=== PATIENT | male | born 1955 | race Caucasian/White ===

== ENCOUNTER 2020-08-24 09:13 | Outpatient (REF) | payer MEDICARE, SELFPAY ==
--- NOTE | 2020-08-24 09:22 | XR_ITS ---
EXAMINATION: XR LUMBOSACRAL SPINE CLINICAL INFORMATION: Back pain COMPARISON: None TECHNIQUE: Three views of the lumbosacral spine. FINDINGS: Bone alignment is normal. No fracture or dislocation is seen. Disc spaces are normal. There is evidence of mild multilevel degenerative spondylosis and lower lumbar spine facet arthritis. There is evidence of atherosclerotic disease. XR/XR lumbar spine 2-3V IMPRESSION: Mild degenerative changes.
== END 2020-08-24 09:14 | disposition home or self-care (01) ==
LOC: HO.XRAY 09:13
PROVIDERS: PCP Internal Medicine; Visit Provider Internal Medicine
DX: M54.9 Dorsalgia, unspecified (principal)
CPT/HCPCS: 72100

== ENCOUNTER 2020-12-14 09:00 | Outpatient (RCR) | payer MEDICARE, SELFPAY ==
[2020-12-01 08:14] VITALS: BP 161/81; PULSE 65
--- NOTE | 2020-12-01 09:43 | MHC.PT.EP ---
[facility] [place] Office [place] Office [place] Office [address] Racheal Solo [address] [phone] F: [phone] F: [phone] F: [phone] F: [phone] Physical Therapy Plan of Care Date of Evaluation: 12/01/20 Date of Surgery: NA Diagnosis: DORSALGIA Assessment: JEREMIAS IS A PLEASANT 65 YO GENTLEMAN WHO PRESENTS WITH LEFT SIDED LOW BACK PAIN OF ABOUT 6 MONTHS' DURATION AND INSIDIOUS ONSET. UPON EXAM HE DEMONSTRATES INCREASED LEFT HIP ABD ROM WITH DECREASED HIP IR AND ER RANGE. STRENGTH OF LEFT LOWER EXTREMITY IS DECREASED COMPARED TO CONTRALATERAL SIDED, RESISTED MOTIONS ARE STRONG AND PAINFUL. DEMONSTRATES RIGHT SI DYSFUNCTION WITH DECREASED MOBILITY AND THESE FINDINGS LEAD TO MUSCULAR LENGTH AND STRENGTH IMBALANCES AND PATTERENED MOVEMENT STYLES CAUSING ALTERED MECHANICS AND INCREASED PAIN. FUNCTIONAL LIMITATIONS INCLUDE DECREASED ABILTIY TO PERFORM LIFTING AND BENDING, DECREASED TOLERANCE TO TRANSFERS AND GAIT, DECREASED PARTICIPATION IN FITNESS AND RECREATIONAL ACTIVITIES AND DISRUPTED SLEEP. Frequency and Duration: The patient will be seen 2 X WEEK FOR 5 WEEKS Short Term Goals: INITIATE HEP AND PROMOTE SELF MANAGEMENT OF SYMPTOMS IN 2 VISITS Snf Goals: IN 5 WEEKS: FULL, PAIN FREE ROM OF LOW BACK AND LEFT LE LIFTING FLOOR TO WAIST UP TO 25# WITH CORRECT BODY MECHANICS AND NO VERBAL CUING FULL LE STRENGTH, EQUAL ELIZABET RETURN TO FITNESS WALKING, 4 MILES WITHOUT RESTRICTION Treatment Plan: Modalities to reduce pain, spasms and effusion. Manual therapy to restore motion and function. Therapeutic exercise to improve strength and flexibility. Neuromuscular re-education for posture and balance. Therapeutic activities to return to functional activities of daily living. Electronically signed by: JENNIFER MOODY PT, DPT Please sign and return to therapist. Thank you for your referral.
--- NOTE | 2020-12-22 09:44 | MHC.PT.DC ---
[facility] [place] Office [place] Office [place] Office [address] Racheal Solo [address] [phone] F: [phone] F: [phone] F: [phone] F: [phone] Physical Therapy Discharge Report Diagnosis: DORSALGIA Date of Surgery: NA Date of Evaluation: 12/01/20 Date of Discharge: Treatments to Date: 4 Cancellations to Date: 0 No Shows to Date: 0 Discharge Status: Patient Elected to Stop Discharge Summary: Pt phoned our office states he is feeling better and feels independent to continue with his home program. Electronically signed by: April Chicas PT, DPT Please sign and return to therapist. Thank you for your referral.
== END 2020-12-22 14:51 | disposition other institution (70) ==
LOC: HO.PT 09:00
PROVIDERS: PCP Internal Medicine; Visit Provider Internal Medicine
DX: M54.9 Dorsalgia, unspecified (principal)
CPT/HCPCS: 97110; 97161; 97535

== ENCOUNTER 2024-03-03 10:50 | Outpatient (AMB) | payer MEDICARE, SELFPAY ==
[2024-03-03 10:55] VITALS: BP 144/80; PULSE 75; O2SAT 98; BMI 27.9
--- NOTE | 2024-03-03 10:55 | A.OFFVIS_ITS ---
Intake Vital Signs 03/03/24 10:55 Height 5 ft 7 in Weight 178 lb BMI 27.9 BP 144/80 H Blood Pressure Location Lt brachial Position Sitting Pulse 75 Pulse Source Pulse Oximeter Pulse Oximetry (%) 98 Oxygen Delivery Method Room Air Intake Visit Reasons: [facility] Financial Analyst Services: Financial Analyst Present Allergies No Known Allergies Allergy (Verified 01/19/23 13:52) HPI SWV HPI Details healthy [facility] Medical History (Updated 03/04/24 @ 08:50 by Zoran Keller MD) Hypertension Family History Father No problems noted. Mother No problems noted. Social History (Updated 09/21/20 @ 10:16 by ÁLVARO Clemente) Alcohol intake: current Alcohol intake frequency: a few times a week Alcohol type: beer Questionnaire Medicare Wellness Checkup [age] What gender do you identify with?: male During the past 4 weeks, how much have you been bothered by emotional problems such as feeling anxious, depressed, irritable, sad or downhearted, and blue?: not at all During the past 4 weeks, has your physical & emotional health limited your social activities with family, friends, neighbors, or groups?: not at all During the past 4 weeks, how much bodily pain have you generally had?: no pain During the past 4 weeks, was someone available to help you if you needed & wanted help?: yes, as much as I wanted During the past 4 weeks, what was the hardest physical activity you could do for at least 2 minutes?: very light Can you get to places out of walking distance without help? (For eg., can you travel alone on buses, taxis or drive your car?): Yes Can you go shopping for groceries or clothes without someone's help?: Yes Can you prepare your own meals?: Yes Can you do your housework without help?: Yes Because of any health problems, do you need the help of another person with your personal care needs such as eating, bathing, dressing or getting around the house?: No Can you handle your own money without help?: Yes During the past 4 weeks, how would you rate your health in general?: excellent During the past 4 weeks how have things been going for you?: very well; could hardly better Are you having difficulties driving your car?: no Do you always fasten your seat belt when you are in a car?: yes, usually During past 4 weeks, have you been bothered by the following: never: Falling or dizzy when standing up, Sexual problems?, Trouble eating well?, Problems using the telephone? and Tiredness or fatigue? and seldom: Teeth or denture problems? Have you fallen 2 or more times in the past year?: No Are you afraid of falling?: No Are you a smoker?: no During the past 4 weeks, how many drinks of wine, beer, or other alcoholic beverages did you have?: 10 or more per week Do you exercise for about 20 minutes 3 or more times a week?: yes, most of the time Have you been given information to help with the following?: yes: Hazards in your house that might hurt you? and yes: Keeping track of your medications? How often do you have trouble taking medicines the way you have been told to take them?: I always take medicine as prescribed How confident are you that you can control & manage most of your health problems?: very confident What is your race?: White Mini Mental State Exam (MMSE) Orientation What is the (year) (season) (date) (day) (month)?: year, season, date, day and month Where are we (state) (county) (town or city) (hospital) (floor)?: state, county, town or city, hospital/clinic and floor Attention & Calculation (CHOOSE ONE) Ask pt to begin with 100 & count backward by 7. Stop after 5 repeats. If pt cannot ask them to spell the word WORLD backward.: 93 and 86 Spell WORLD backwards (DLROW): 4 letters Recall Ask patient to repeat the 3 items from question #3.: object 1, object 2 and object 3 Score Score: 19 Activity of Daily Living Bathing - sponge bath, tub bath or shower: receives no assistance (gets in/out by self, if usual bathing means Dressing - getting clothes from closets & drawers, including inner/outer garments & fasteners.: gets clothes & gets completely dressed without help Toileting - going to the 'toilet room' for urine/bowel elimination & cleaning self/arranging clothes: goes to toilet room, cleans self, arranges clothes without help Transfer: moves in & out of bed and chair without help (may use support object) Continence: controls urination/bowel movements completely by self Feeding: feeds self without help Total Score: 0 Information obtained from: patient Using telephone: independent Traveling: independent Shopping: independent Preparing meals: independent Housework: independent Taking medicine: independent Managing money: independent PHQ-9 Over the last 2 weeks, how often have you been bothered by any of the following problems? 1. Little interest or pleasure in doing things: not at all 2. Feeling down, depressed, or hopeless: not at all 3. Trouble falling or staying asleep, or sleeping too much: several days 4. Feeling tired or having little energy: not at all 5. Poor appetite or overeating: not at all 6. Feeling bad about yourself - or that you are a failure or have let yourself or your family down: not at all 7. Trouble concentrating on things, such as reading the newspaper or watching television: not at all 8. Moving or speaking so slowly that other people could have noticed. Or the opposite - being so fidgety or restless that you have been moving around a lot more than usual: not at all 9. Thoughts that you would be better off or of hurting yourself in some way: not at all Total score: 1 Depression Screening Interpretation: Negative Depression Screening Done: Yes 00529 - PHQ-9 Billing: Yes Source: Developed by Drs. Abdullahi Montes, Tammi Wilson, Andrey Dow and colleagues, with an educational carlos from [facility]. Review of Systems Const Denies chills, Denies fatigue, Denies headache(s) and Denies weight loss Eyes Denies change in vision, Denies diplopia and Denies eye pain ENT Reports Normal hearing present, Denies vertigo, Denies dizziness, Denies headache(s) and Denies nasal discharge Card Denies chest pain, Denies rapid heart rate and Denies dyspnea on exertion Resp Denies chest congestion, Denies cough, Denies pain with cough and Denies dyspnea on exertion GI Denies abdominal pain, Denies hematochezia and Denies change in bowel habits Musc Denies myalgias, Denies arthralgias and Denies joint swelling Skin/Breast Denies lesions and Denies unusual bruising Neuro Reports Normal hearing present, Denies vertigo, Denies dizziness, Denies headache(s) and Denies focal weakness Endo Denies fatigue Physical Exam Vital Signs: Last Vital Signs Pulse 75 03/03/24 10:55 BP 144/80 H 03/03/24 10:55 Pulse Ox 98 03/03/24 10:55 Oxygen Delivery Method Room Air 03/03/24 10:55 BMI result Body Mass Index 27.9 Neuro Cranial nerves: Yes Normal hearing present Assessment & Plan Assessment & Plan (1) Encounter for subsequent annual wellness visit (AWV) in Medicare patient: Code(s): Z00.00 - Encounter for general adult medical examination without abnormal findings Plan: rhomberg and whisper tests Quality Reporting (2019) Depression/Bipolar (159/160/161/177) PHQ-9: Total score: 1 Coding Level of Care Code Medicare Subsequent (G0439) Diagnoses Encounter for subsequent annual wellness visit (AWV) in Medicare patient Z00.00 CPT Codes Advance Care Planning - Advance Care Planning discussion: On file, no changes ([id number]) Advance Care Planning - Time spent: 1-15 minutes, on File ([id number]) Advance Care Planning Advance Care Planning discussion: On file, no changes Forms completed: Health Care Proxy Time spent: 1-15 minutes, on File
== END 2024-03-03 13:10 | disposition home or self-care (01) ==
PROVIDERS: PCP Internal Medicine; Visit Provider Internal Medicine
DX: Z00.00 Encounter for general adult medical examination without abnormal findings (principal)
CPT/HCPCS: 1123F; 99499

== ENCOUNTER 2025-03-27 08:46 | Outpatient (AMB) | payer MEDICARE, SELFPAY ==
--- NOTE | 2025-03-27 08:57 | MHC.PC.OV ---
Vital Signs 03/27/25 08:59 03/27/25 09:25 Height 5 ft 7 in Weight 181 lb BMI 28.3 BP 140/70 H 138/86 Blood Pressure Location Lt brachial Lt brachial Position Sitting Sitting Pulse 78 Pulse Source Pulse Oximeter Temp 97.1 F Temp Source Temporal Artery Scan Pulse Oximetry (%) 97 Oxygen Delivery Method Room Air Intake Visit Reasons: JOSE Dr Keller Intake Note: Patient is here today for JOSE from Dr Keller [employer] T[employer] Sales Required: No Hand Gluer And Slicer: Not Required per policy Accompanied by: Self / Same As Patient Allergies No Known Allergies Allergy (Verified 03/27/25 09:15) Medication List - Last Reconciled 03/27/25 by JAMEL Crouch atorvastatin 20 mg PO DAILY cholecalciferol (vitamin D3) 25 mcg PO DAILY clotrimazole-betamethasone 1-0.05 % 1 appl topical BID PRN 2 weeks hydrochlorothiazide 12.5 mg PO BID losartan 50 mg PO DAILY mv,Ca,ivz-dtjo-VM-lycopene 8 mg iron- 200 mcg-600 mcg (Centrum Men) 1 tab PO DAILY sildenafil (Viagra) 50 mg PO DAILY PRN Tobacco use date assessed: 03/27/25 Fall risk assessment: No Falls in past year Last assessed Fall Risk: 03/27/25 Dental Screening Dental Screen Date: 03/27/25 Did you have a dental visit in the last 12 months?: Yes Did you have a dental problem in the last 6 months where you did not have access to dental care?: No Was dental information given to patient?: Patient has dentist HPI JOSE Dr Keller HPI Details The patient is a 70-year-old male presenting to transitioned care from Dr. Keller, who retired. Patient reports that he [facility] and he usually sees Dr. Keller for his Medicare wellness check. The patient has a history of hyperlipidemia and essential hypertension, for which he is on medication. He reports that his blood pressure is usually high, but he tries to manage it by walking five times a week and controlling his salt intake. The patient has been receiving regular colonoscopies since the age of 44, with the last one conducted two to three years ago. He is currently on a ten-year interval for colonoscopy screenings. The patient reports experiencing nocturia, getting up three to four times a night to urinate. He attributes this to drinking water close to bedtime. The patient had a recent episode of sciatica, which was resolved with treatment at the [facility]. He also experienced a pulled muscle in his left shoulder after a beach trip, which has since resolved. The patient has no labs results in his chart. Reports that he usually gets his blood work done [facility]. He he has an upcoming appointment and we will be getting more blood work soon. He will ask the [facility] to send us the results and also could bring as the hard copy from last year. Reports drinking 5-6 beers about 4 to 5 times a week with friends Denies smoking FOR[facility]LY [facility], [facility] Medical History Hypertension Surgical History History of eye surgery Family History Father No problems noted. Mother No problems noted. Social History Housing: [facility] Alcohol intake: current Alcohol intake frequency: a few times a week Alcohol type: beer Patient Tobacco Use Status: Never used Tobacco e-Cigarette/Vaping Use: Never Used Second Hand Smoke Exposure: No service: Yes Current occupational status: retired Cognitive needs: No Hearing needs: No Vision needs: Yes (Reading glasses) Questionnaire PHQ-9 Over the last 2 weeks, how often have you been bothered by any of the following problems? 1. Little interest or pleasure in doing things: not at all 2. Feeling down, depressed, or hopeless: not at all 3. Trouble falling or staying asleep, or sleeping too much: more than half the days 4. Feeling tired or having little energy: not at all 5. Poor appetite or overeating: not at all 6. Feeling bad about yourself - or that you are a failure or have let yourself or your family down: not at all 7. Trouble concentrating on things, such as reading the newspaper or watching television: not at all 8. Moving or speaking so slowly that other people could have noticed. Or the opposite - being so fidgety or restless that you have been moving around a lot more than usual: not at all 9. Thoughts that you would be better off or of hurting yourself in some way: not at all Total score: 2 Depression Screening Interpretation: Negative Depression Screening Done: Yes 44773 - PHQ-9 Billing: Yes Source: Developed by Drs. Abdullahi Montes, Tammi Wilson, Andrey Dow and colleagues, with an educational carlos from [employer]. Thrive Questionnaire Date Thrive assessed: 03/27/25 I am a: Patient What is your living situation today?: I have a steady place to live Within the past 12 months, did the food you bought not last and you didn't have the money to get more?: Never true Within the past 12 months, did you worry whether your food would run out before you got money to buy more?: Never true Do you have trouble paying for medicines?: No Do you have trouble getting transportation to medical appointments?: No Do you have trouble paying your heating and electricity bill?: No Do you have trouble taking care of your child, family member or friend?: No Do you have trouble with day-to-day activities such as bathing, preparing meals, shopping, managing finances, etc.?: No Are you currently unemployed and looking for a job?: No Are you interested in more education?: No Please select the resources that you would like help with: None Currently or been in a relationship where the following occur: No concerns reported THRIVE Score: 0 AUDIT C Alcohol Use Questionnaire (AUDIT-C) 1. How often do you have a drink containing alcohol?: 4 or more times a week 2. How many drinks containing alcohol do you have on a typical day when you are drinking?: 5 or 6 3. How often do you have six or more drinks on one occasion?: Weekly Total Score: 9 DILAN-7 AMB Questionnaire DILAN-7 Date DILAN - 7 assessed: 03/27/25 Feeling nervous, anxious, or on edge: 0 = Not at all Not being able to stop or control worryin = Not at all Worrying too much about different things: 1 = Several days Trouble relaxin = Not at all Being so restless that it is hard to sit still: 0 = Not at all Becoming easily annoyed or irritable: 0 = Not at all Feeling afraid as if something awful might happen: 0 = Not at all Total DILAN-7 score (0-4 normal; 5-9 mild; 10-14 moderate; 15-21 severe): 1 Source: Developed by Drs. Abdullahi Montes, Tammi Wilson, Andrey Dow and colleagues, with an educational carlos from [employer]. DILAN-7 Assessment Billing DILAN-7 Assessment Tool: DILAN-7 Assessment 39920 Review of Systems Const Denies headache(s) Eyes Denies loss of vision ENT Denies vertigo, Denies dizziness, Denies headache(s) and Denies sore throat Card Denies chest pain, Denies leg edema and Denies lightheadedness Resp Denies cough, Denies hemoptysis and Denies wheezing GI Denies abdominal pain, Denies melena, Denies constipation, Denies diarrhea and Denies vomiting Denies dysuria, Denies urinary frequency and Denies urinary urgency Musc Denies arthralgias, Denies joint swelling, Denies numbness and Denies tingling Neuro Denies Abnormal speech present, Denies behavioral changes, Denies vertigo, Denies dizziness, Denies headache(s), Denies loss of vision, Denies memory loss, Denies numbness and Denies tingling Psych Denies anxiety, Denies behavioral changes, Denies depression, Denies memory loss and Denies panic attacks Christopher/Lymph Denies easy bleeding and Denies easy bruising Aller/Immun Denies wheezing Physical exam (Primary Care) Vital Signs: Last Vital Signs Temp 97.1 F 03/27/25 08:59 Pulse 78 03/27/25 08:59 BP 138/86 03/27/25 09:25 Pulse Ox 97 03/27/25 08:59 Oxygen Delivery Method Room Air 03/27/25 08:59 BMI result Body Mass Index 28.3 Tobacco/Smoking Status: Tobacco use Status Tobacco use date assessed 03/27/25 03/27/25 09:05 Patient Tobacco Use Status Never used Tobacco 03/27/25 09:05 e-Cigarette/Vaping Use Never Used 03/27/25 09:05 PHQ-9: PHQ-9 Score PHQ-9: Total score 2 03/27/25 09:44 Depression Screening Interpretation: Negative Thrive Assessment: Date of Thrive Assessment Date Thrive assessed 03/27/25 03/27/25 09:05 Currently or been in a relationship where the following occur: No concerns reported Const General: healthy appearing, no acute distress, alert and awake Nutritional Appearance: well nourished Orientation/consciousness: oriented to person, oriented to place and oriented to time HENMT Ears: TM's normal bilaterally General nose exam: Normal nasal mucous membranes and turbinates present Eyes Conjunctivae: conjunctivae normal Sclerae: sclerae normal Pupils: Equal, round and reactive pupils present Neck Neck: Yes no lymphadenopathy and Yes no JVD Thyroid: Thyroid normal Carotids: no bruits Resp Effort & Inspection: normal respiratory effort and not tachypneic Auscultation: no crackles, no rales, no rhonchi and no wheezes Cardio Rate: regular rate Rhythm: regular rhythm Heart sounds: no murmurs and normal S1 and S2 GI Palpation (GI): Soft to palpation, nontender, no hepatomegaly and no splenomegaly Auscultation: normal bowel sounds Skin General skin exam: no rashes or lesions noted and dry skin Neuro General: oriented to person, oriented to place and oriented to time Cranial nerves: Yes Equal, round and reactive pupils present Speech: No Abnormal speech present Gait exam (Neuro): Normal gait present Motor exam (neuro): no tremor noted Extrem Right upper extremity: full ROM Left upper extremity: full ROM Right lower extremity: full ROM; no edema Left lower extremity: full ROM; no edema Psych Mental Status: mental status grossly normal Speech and movement: Normal speech and movement present Affect: normal affect Attitude: cooperative Thought process: Normal thought process present Coding Level of Care Code Est Pt Level 3 (07568) Diagnoses Hypertension, unspecified type I10 Hypertension type: unspecified Hyperlipidemia, unspecified hyperlipidemia type E78.5 Hyperlipidemia type: unspecified Vitamin D deficiency E55.9 Erectile dysfunction, unspecified erectile dysfunction type N52.9 Erectile dysfunction type: unspecified Nocturia R35.1 Alcohol use F10.90 Additional Codes DILAN-7 Assessment Billing - DILAN-7 Assessment Tool: DILAN-7 Assessment 69905 ([id number]) PHQ-9 - 84161 - PHQ-9 Billing: Yes ([id number]) Time Spent (min) 33 Assessment & Plan Assessment & Plan (1) Hypertension: Comment: cont same meds Code(s): I10 - Essential (primary) hypertension Category: Medical Qualifiers: Hypertension type: unspecified Qualified Code(s): I10 - Essential (primary) hypertension Plan: The patient blood pressure was elevated in office today. Rechecked blood pressure slightly improved but continues to be above goal. The patient reports drinking coffee prior to office visit and also using salt which he has been cutting down Reinforced dash diet and activity as tolerated Continue hydrochlorothiazide 12.5 mg b.i.d. and losartan 50 mg daily (2) Hyperlipidemia: Code(s): E78.5 - Hyperlipidemia, unspecified Category: Medical Qualifiers: Hyperlipidemia type: unspecified Qualified Code(s): E78.5 - Hyperlipidemia, unspecified Plan: History of high cholesterol. The patient does not have any labs in his chart to review [facility] to have more blood work done Reports that he will have them send us the results, and he can also bringing the hard copy from last year Reinforced low-cholesterol diet and activity as tolerated Continue atorvastatin 20 mg daily (3) Vitamin D deficiency: Code(s): E55.9 - Vitamin D deficiency, unspecified Category: Medical Plan: Continue cholecalciferol 25 mcg daily (4) Erectile dysfunction: Code(s): N52.9 - Male erectile dysfunction, unspecified Category: Medical Qualifiers: Erectile dysfunction type: unspecified Qualified Code(s): N52.9 - Male erectile dysfunction, unspecified Plan: Continue sildenafil 50 mg daily p.r.n. (5) Nocturia: Code(s): R35.1 - Nocturia Category: Medical Plan: Reports going 3-4 times a night. But also admitting to drinking water close to bedtime Encouraged the patient to have them send his labs evaluate his PSA (6) Alcohol use: Code(s): F10.90 - Alcohol use, unspecified, uncomplicated Category: Social Hx Plan: Encouraged lowering alcohol use even though he primarily drinks beers
--- OUTSIDE RECORDS SUMMARY | 2025-03-27 08:57 | XMS_ITS | Encounter Summary ---
Author Organization [facility] Address [address] [facility] [address] [place] [address] Care Team Providers Care Cone Marker Name Role Phone Unavailable Primary Care Provider Unavailabl e Encounter Details Date Type Department Care Team (Latest Contact Info) Description 06/14/2021 Abstract [facility] CONVERSION[facility] Dental, Provider, DDS Social History Tobacco Use Types Packs/Day Years Used Date Smoking Tobacco: Never Assessed Sex and Gender Information Value Date Recorded Sex Assigned at Male 06/26/2022 10:34 AM EDT Legal Sex Male 10:34 AM EDT Gender Identity Male 06/26/2022 10:34 AM EDT Sexual Orientation Don't know 06/26/2022 10 :34 AM EDT documented as of this encounter Plan of Treatment Not on file documented as of this encounter Visit Diagnoses Not on filedocumented in this encounter
--- OUTSIDE RECORDS SUMMARY | 2025-03-27 08:57 | XMS_ITS | Patient Health Record ---
Author Organization [facility] Address [address] [place] [address] Care Team Providers Care Heel Stainer Name Role Phone Krishna LAMBERT, Zoran Primary Care Provider Ciaran Dick Unavailable [phone] Reason For Referral No Information Social History Tobacco use other than smoking: Question Answer Notes Are you an other tobacco user? No Problems Problem Type SNOMED Code ICD Code Onset Dates Problem Status W/U Status Risk Notes Problem Acquired hallux rigidus (0071236) Hallux rigidus, left foot (M20.22) Active confirmed Problem Hallux rigidus, right foot (M20.21) Active confirmed Plan Of Treatment Pending Test Test Name Order Date X ray : Foot, left 2V 07/17/2016 X ray : Foot, right 2V 07/17/2016 Insurance Providers Payer Name Payer Address Payer Phone Subscriber Number Group Number Insured Name Patient Relationship to Insured Coverage Start Date Coverage End Date [employer] [address] [address] [place], [place] [id number] Jose Lechuga Self - patient is the insured Medical (General) History Medical History History ICD Code Cancer Measles
--- OUTSIDE RECORDS SUMMARY | 2025-03-27 08:57 | XMS_ITS | Encounter Summary ---
Author Organization [facility] Address [address] [place] [address] Phone Care Team Providers Care Food Safety Technician Name Role Phone Zoran Keller MD Primary Care Provider [phone] Hoang Tidwell DO Primary Care Provider [phone] Encounter Details Date Type Department Care Team (Latest Contact Info) Description 01/29/2018 Transcribe Orders [facility] Laboratory [address] [place] [address] Hoang Tidwell DO [address] [place] [address] Hyperlipidemia, unspecified hyperlipidemia type (Primary Dx); Essential hypertension, benign Social History Tobacco Use Types Packs/Day Years Used Date Smoking Tobacco: Never Assessed Sex and Gender Information Value Date Recorded Sex Assigned at Not on file Legal Sex Male 9:57 PM EDT Gender Identity Not on file Sexual Orientation Not on file documented as of this encounter Plan of Treatment Not on file documented as of this encounter Results * (ABNORMAL) Basic metabolic panel (01/29/2018 8:47 AM EDT) SODIUM 142 133 - 146 mmol/L [facility] CHLORIDE 102 96 - 108 mmol/L [facility] POTASSIUM 5.2(H) 3.3 - 5.1 mmol/L [facility] CO2 30 21 - 35 mmol/L [facility] BUN 18 6 - 19 mg/dL [facility] CREATININE 1.10 0.5 - 1.5 mg/dL [facility] GLUCOSE 105(H) 70 - 99 mg/dL [facility] CALCIUM 9.2 8.4 - 10.3 mg/dL [facility] EGFR 71 >59 mL/min/1.7 3m2 [facility] Comment:If patient is black, multiply result by 1.159. The eGFR calculation has changed from the MDRD equation to the CKD-EPI equation as of October 30, 2017. ANION GAP 15 10 - 20 mmol/L [facility] Blood 01/29/2018 8:47 AM EDT 01/29/2018 8:48 AM EDT us Hoang Tidwell DO LAB BLOOD ORDERABLES Final Resu lt [address] [address] documented in this encounter Visit Diagnoses Diagnosis Hyperlipidemia, unspecified hyperlipidemia type- Primary Essential hypertension, benign documented in this encounter Care Teams Food Safety Technician Relationship Specialty Start Date End Date Zoran Keller MD [address] [place] [address] [place] [address] PCP - General Internal Medicine 01/08/18 10/14/19 Hoang Tidwell DO [address] [place] [address] [place] [address] PCP - General Internal Medicine 10/15/19 documented as of this encounter Additional Source Comments The information contained in this document represents components of the legal health record. It is not the complete legal health record.[facility]
[2025-03-27 08:59] VITALS: BP 140/70; PULSE 78; TEMP 36.2; O2SAT 97; BMI 28.3
[2025-03-27 09:25] VITALS: BP 138/86
== END 2025-03-27 09:34 | disposition home or self-care (01) ==
LOC: HO.HMCH 08:47
DX: I10 Essential (primary) hypertension (principal); E78.5 Hyperlipidemia, unspecified; E55.9 Vitamin D deficiency, unspecified; N52.9 Male erectile dysfunction, unspecified; R35.1 Nocturia; F10.90 Alcohol use, unspecified, uncomplicated

== ENCOUNTER → 2025-03-27 08:46 | Outpatient (BNVA) | payer MEDICARE, SELFPAY | DX: I10 Essential (primary) hypertension (principal); E78.5 Hyperlipidemia, unspecified; E55.9 Vitamin D deficiency, unspecified; N52.9 Male erectile dysfunction, unspecified; R35.1 Nocturia; F10.90 Alcohol use, unspecified, uncomplicated; Z79.899 Other long term (current) drug therapy; Z13.31 Encounter for screening for depression; Z13.39 Encounter for screening examination for other mental health and behavioral disorders | CPT/HCPCS: 96127; 99212 ==

== ENCOUNTER 2025-06-09 11:41 | Outpatient (AMB) | payer MEDICARE, SELFPAY ==
--- NOTE | 2025-06-09 12:02 | MHC.OFFWIV ---
Intake Vital Signs 06/09/25 12:03 Height 5 ft 7 in Weight 179 lb BMI 28.0 BP 138/90 H Blood Pressure Location Rt brachial Position Sitting Pulse 84 Pulse Source Pulse Oximeter Temp 98.1 F Temp Source Oral Pulse Oximetry (%) 99 Oxygen Delivery Method Room Air Intake Visit Reasons: EP-?lt hand bug bite Patient Tobacco Use Status: Never used Tobacco Allergies No Known Allergies Allergy (Verified 06/09/25 12:04) Do you need a note to return to daycare/school/sports/work: No HPI HPI Comments History of Present Illness Details History of Present Illness - The patient is a 70-year-old male presenting with swelling and pain in the right hand following a possible insect bite. - The patient reports being bitten by an unknown insect approximately two weeks ago, resulting in persistent swelling and pain. - The patient experiences pain when attempting to grasp objects, with two small round wilson noticeable on his hand. - The patient has tried Tylenol Arthritis for pain relief without significant improvement. Physical Exam General: Cooperative, healthy appearing, comfortable, no acute distress and well developed Orientation: Patient oriented x3 Limitations: Cannot grasp anything with the affected hand due to pain and swelling Head: Normal to inspection Ears: Hearing grossly normal bilaterally Nose: Normal External nose present Face and sinus: Normal facial exam Eyes: Appearance normal, both eyes and all related structures Neck: Normal visual inspection and Yes full ROM Respiratory: Normal respiratory effort and able to speak in complete sentences. Skin: right hand dorsal aspect base of thumb has two little brown dots with edema, slight TTP, no rashes, warmth or lesions noted, full ROM right hand and thumb Neuro: Patient oriented x3 Extremities: moving all extremities normally Review of Systems - Musculoskeletal: Reports pain and swelling in the hand, denies any other joint pain or swelling. - Integumentary: Reports two small puncture wilson with surrounding swelling, denies rash or hives. All systems reviewed and are unremarkable except as noted in HPI COUNT INCLUDES THE [facility] Medical History Hypertension Surgical History History of eye surgery Family History Father No problems noted. Mother No problems noted. Social History Housing: Condominium Alcohol intake: current Alcohol intake frequency: a few times a week Alcohol type: beer Patient Tobacco Use Status: Never used Tobacco e-Cigarette/Vaping Use: Never Used Second Hand Smoke Exposure: No service: Yes Current occupational status: retired Cognitive needs: No Hearing needs: No Vision needs: Yes (Reading glasses) Physical Exam Vital Signs: Last Vital Signs Temp 98.1 F 06/09/25 12:03 Pulse 84 06/09/25 12:03 BP 138/90 H 06/09/25 12:03 Pulse Ox 99 06/09/25 12:03 Oxygen Delivery Method Room Air 06/09/25 12:03 BMI result Body Mass Index 28.0 Assessment & Plan Assessment & Plan (1) Bug bite of hand: Code(s): S60.569A - Insect bite (nonvenomous) of unspecified hand, initial encounter; W57.XXXA - Bitten or stung by nonvenomous insect and other nonvenomous arthropods, initial encounter Qualifiers: Encounter type: initial encounter Laterality: left Qualified Code(s): S60.562A - Insect bite (nonvenomous) of left hand, initial encounter; W57.XXXA - Bitten or stung by nonvenomous insect and other nonvenomous arthropods, initial encounter Plan: Patient was informed and verbally consented to the use of an ambient scribe for clinic note documentation during this visit. Localized Swelling And Pain In The Hand Due To A Possible Insect Bite - Recommend trial of NSAIDs such as Advil or Aleve for anti-inflammatory effect. - If NSAID ineffective, suggested use of antihistamines like Benadryl to address potential allergic reaction. - Advise monitoring symptoms and seeking further medical evaluation from PCP if no improvement is noted. Coding Level of Care Code Est Pt Level 3 (97088) Diagnoses Insect bite of left hand, initial encounter S60.562A; W57.XXXA Encounter type: initial encounter Laterality: left
[2025-06-09 12:03] VITALS: BP 138/90; PULSE 84; TEMP 36.7; O2SAT 99; BMI 28.0
--- OUTSIDE RECORDS SUMMARY | 2025-06-09 14:17 | XMS_ITS | Patient Health Record ---
[facility] Address [address] [place] [address] Care Team Providers Care Floor Cleaner Name Role Phone Krishna LAMBERT, Zoran Primary Care Provider Dimaa Ciaran Hunt Unavailable [phone] Reason For Referral No Information Social History Tobacco use other than smoking: Question Answer Notes Are you an other tobacco user? No Problems Problem Type SNOMED Code ICD Code Onset Dates Problem Status W/U Status Risk Notes Problem Acquired hallux rigidus (8074211) Hallux rigidus, left foot (M20.22) Active confirmed Problem Acquired hallux rigidus (9429033) Hallux rigidus, right foot (M20.21) Active confirmed Plan Of Treatment Pending Test Test Name Order Date X ray : Foot, left 2V 07/17/2016 X ray : Foot, right 2V 07/17/2016 Insurance Providers Payer Name Payer Address Payer Phone Subscriber Number Group Number Insured Name Patient Relationship to Insured Coverage Start Date Coverage End Date [employer] [address] [address] [place] [address] [id number] Jose Lechuga Self - patient is the insured Medical (General) History Medical History History ICD Code Cancer Measles
--- OUTSIDE RECORDS SUMMARY | 2025-06-09 14:17 | XMS_ITS | Encounter Summary ---
Author Organization [facility] Address [address] [place] [address] Phone Care Team Providers Care Wood Box Maker Name Role Phone Zoran Keller MD Primary Care Provider [phone] Hoang Tidwell DO Primary Care Provider [phone] Encounter Details Date Type Department Care Team (Latest Contact Info) Description 01/29/2018 Transcribe Orders [facility] Laboratory [address] [place] [address] Hoang Tidwell DO [address] [place] [address] Hyperlipidemia, unspecified hyperlipidemia type (Primary Dx); Essential [...] EDT) SODIUM 142 133 - 146 mmol/L [facility] CHLORIDE 102 96 - 108 mmol/L [facility] POTASSIUM 5.2(H) 3.3 - 5.1 mmol/L [facility] CO2 30 21 - 35 mmol/L [facility] BUN 18 6 - 19 mg/dL [facility] CREATININE 1.10 0.5 - 1.5 mg/dL [facility] GLUCOSE 105(H) 70 - 99 mg/dL [facility] CALCIUM 9.2 8.4 - 10.3 mg/dL [facility] EGFR 71 >59 mL/min/1.7 3m2 [facility] Comment:If patient is black, multiply result by 1.159. The eGFR calculation has changed from the MDRD equation to the CKD-EPI equation as of October 30, 2017. ANION GAP 15 10 - 20 mmol/L [facility] Blood 01/29/2018 8:47 AM EDT 01/29/2018 8:48 AM EDT us Hoang Tidwell DO LAB BLOOD ORDERABLES Final Resu lt [address] [address] documented in this encounter Visit Diagnoses Diagnosis Hyperlipidemia, unspecified hyperlipidemia type- Primary Essential hypertension, benign documented in this encounter Care Teams Wood Box Maker Relationship Specialty Start Date End Date Zoran Keller MD [address] [place] [address] [place] [address] PCP - General Internal Medicine 01/08/18 10/14/19 Hoang Tidwell DO [address] [place] [address] [place] [address] PCP - General Internal Medicine 10/15/19 documented as of this encounter Additional Source Comments The information contained in this document represents components of the legal health record. It is not the complete legal health record.[facility]
--- OUTSIDE RECORDS SUMMARY | 2025-06-09 14:17 | XMS_ITS | Encounter Summary ---
Author Organization [facility] Address [address] [place] [address] Care Team Providers Care Process Development Engineer Name Role Phone Unavailable Primary Care Provider Unavailabl e Encounter Details Date Type Department Care Team (Latest Contact Info) Description 06/14/2021 Abstract [facility] CONVERSIONS Dental, Provider, DDS Social History Tobacco [...]
--- OUTSIDE RECORDS SUMMARY | 2025-06-09 14:17 | XMS_ITS | Encounter Summary ---
Author Organization [facility] Address [address] [facility] [address] [place] [address] Care Team Providers Care Metal Bonding Press Operator Name Role Phone Unavailable Primary Care Provider Unavailabl e Encounter Details Date Type Department Care Team (Latest Contact Info) Description 09/09/2018 Abstract [facility] CONVERSIONS Dental, Provider, DDS Social History [...]
--- OUTSIDE RECORDS SUMMARY | 2025-06-09 14:17 | XMS_ITS | Encounter Summary ---
Author Organization [facility] Address [address] [place] [address] Phone Care Team Providers Care Sale Professional Digital Marketing Name Role Phone Hoang Tidwell DO Primary Care Provider [phone] Encounter Details Date Type Department Care Team (Latest Contact Info) Description 02/10/2020 Transcribe Orders [facility] Laboratory [address] [place] [address] Hoang Tidwell DO [address] [place] [address] Hyperlipidemia, unspecified hyperlipidemia type (Primary Dx); Secondary hypertension Social History Tobacco Use Types Packs/Day Years Used Date Smoking Tobacco: Never Assessed Sex and Gender Information Value Date Recorded Sex Assigned at Not on file Legal Sex Male 9:57 PM EDT Gender Identity Not on file Sexual Orientation Not on file documented as of this encounter Plan of Treatment Not on file documented as of this encounter Results * PSA (screening) (02/10/2020 8:51 AM EDT) Pathologist [facility] PSA 1.59 0 - 4.00 ng/mL [facility] Blood 02/10/2020 8:51 AM EDT 02/10/2020 8:54 AM EDT us Hoang Tidwell DO LAB BLOOD ORDERABLES Final Resu lt [facility] [address] [place] [address] * TSH (02/10/2020 8:51 AM EDT) TSH 2.80 0.27 - 4.20 uIU/mL [facility] Blood 02/10/2020 8:51 AM EDT 02/10/2020 8:55 AM EDT us Hoang Tidwell DO LAB BLOOD ORDERABLES Final Resu lt Performing Organization Address City/[facility]/ZIP Co de Phone Number [address] [address] * (ABNORMAL) Lipid panel (02/10/2020 8:51 AM EDT) HDL 73 mg/dL [facility] Comment: Interpretation <40 mg/dL: Low HDL cholesterol (major risk factor for CHD) Greater than or equal to 60 mg/dL: High HDL cholesterol ( negative risk factor for CHD) HDL - cholesterol is affected by a number of factors, e.g. smoking, excerise, hormones, sex and age. CHOLESTEROL 235 0 - 240 mg/dL [facility] TRIGLYCERIDES 58 30 - 160 mg/dL [facility] LDL 150(H) 50 - 129 mg/dL [facility] Comment: LDL levels in terms of risk for coronary heart disease: <100 mg/dL: Optimal 100-129 mg/dL: Near or above optimal 130-159 mg/dL: Borderline high 160-189 mg/dL: High >190 mg/dL: Very High CARDIAC RISK RATIO 3.2(L) 3.4 - 5.0 [facility] Blood 02/10/2020 8:51 AM EDT 02/10/2020 8:55 AM EDT us Hoang Tidwell DO LAB BLOOD ORDERABLES Final Resu lt [address] [address] documented in this encounter Visit Diagnoses Diagnosis Hyperlipidemia, unspecified hyperlipidemia type- Primary Secondary hypertension Other secondary hypertension, unspecified documented in this encounter Care Teams Sale Professional Digital Marketing Relationship Specialty Start Date End Date Hoang Tidwell DO PCP - General Internal Medicine 10/15/19 documented as of this encounter Additional Source Comments The information contained in this document represents components of the legal health record. It is not the complete legal health record.[facility]
--- OUTSIDE RECORDS SUMMARY | 2025-06-09 14:17 | XMS_ITS | Encounter Summary ---
Author Organization [employer] Address [address] [place] [address] Care Team Providers Care Hydrochloric Area Supervisor Name Role Phone Unavailable Primary Care Provider Unavailabl e Encounter Details Date Type Department Care Team (Latest Contact Info) Description 11/10/2019 Abstract [facility] CONVERSIONS Dental, Provider, DDS Social History [...]
--- OUTSIDE RECORDS SUMMARY | 2025-06-09 14:17 | XMS_ITS | Clinical Summary ---
Author Organization [employer] Address [address] [place] [address] Care Team Providers Care Grain Elevator Motor Starter Name Role Phone Unavailable Primary Care Provider Unavailabl e Allergies No known active allergies Medications hydroCHLOROthiaz filiberto (HYDRODiuril) 12.5 MG tablet Take 12.5 mg by mouth 2 times daily. 08/12/2022 Active losartan (Cozaar) 50 MG tablet Take 50 mg by mouth in the morning. 08/12/2022 Active atorvastatin (Lipitor) 40 MG tablet 20 mg. 03/08/2023 Active Social History Tobacco Use Types Packs/Day Years Used Date Smoking Tobacco: Never Smokeless Tobacco: Never Tobacco Cessation:Counseling Given: Not Answered Sex and Gender Information Value Date Recorded Sex Assigned at Male 06/26/2022 10:34 AM EDT Legal Sex Male 10:34 AM EDT Gender Identity Male 06/26/2022 10:34 AM EDT Sexual Orientation Don't know 06/26/2022 10 :34 AM EDT Last Filed Vital Signs Vital Sign Reading Time Taken Comments Blood Pressure 162/88 06/19/2023 10:38 AM EDT Pulse 68 06/19/2023 10:38 AM EDT Temperature - - Respiratory Rate - - Oxygen Saturation - - Inhaled Oxygen Concentration - - Weight - - Height - - Body Mass Index - - Plan of Treatment Health Maintenance Due Date Last Done Comments CT Colonography 1954 Colonoscopy 1954 Colorectal Cancer Screening 1954 Dental Oral Exam 1954 Dental X-Ray: Bitewings 1954 Dental X-Ray: Full Mouth 1954 Depression Screening 1954 FIT DNA/Cologuard 1954 FIT 1954 FOBT 1954 Lipid Panel 1954 SDOH Screening 1954 Sigmoidoscopy 1954 Alcohol/Substance Use Screening 1966 Hepatitis C Screening 02/08/1972 Dental Prophylaxis 12/20/2023 06/19/2023, 10/12/2022 Tobacco Screening 06/19/2024 06/19/2023 COVID-19 Vaccine ( - season) 2025 06/18/2022, 08/11/2021, 11/23/2020, Additional history exists Influenza Vaccine (#1) 2025 , 06/22/2021, 06/10/2021, Additional history exists RSV Patients and Patients Aged 60 years or older (1 - 1-dose 75+ series) 2029 DTaP/Tdap/Td Vaccines (2 - Td or Tdap) 03/09/2032 03/09/2022 Zoster Vaccines Completed 06/30/2021, 02/25/2021 Pneumococcal Vaccine: 50+ Years Completed 03/09/2022, 07/15/2019 HIB Vaccines Aged Out No longer eligi ble based on patient's age to complete this topic HPV Vaccines Aged Out No longer eligi ble based on patient's age to complete this topic Hepatitis A Vaccines Aged Out No long er eligible based on patient's age to complete this topic Hepatitis B Vaccines Aged Out No long er eligible based on patient's age to complete this topic IPV Vaccines Aged Out No longer eligi ble based on patient's age to complete this topic Meningococcal B Vaccine Aged Out No l onger eligible based on patient's age to complete this topic Meningococcal Vaccine Aged Out No kapil hemanth eligible based on patient's age to complete this topic RSV under 20 months Aged Out No longe r eligible based on patient's age to complete this topic Rotavirus Vaccines Aged Out No longer eligible based on patient's age to complete this topic Procedures Procedure Name Priority Date/Time Associated Diagnosis Comments PROPHYLAXIS - ADULT Routine 06/19/2023 10:00 AM EDT from Last 3 Months or Most Recently Relevant to Health Maintenance
--- OUTSIDE RECORDS SUMMARY | 2025-06-09 14:17 | XMS_ITS | Clinical Summary ---
Author Organization [facility] Address [address] [place] [address] Phone Care Team Providers Care Track Sweeper Name Role Phone YawAzebnuha Steen DO Primary Care Provider [phone] Social History Tobacco Use Types Packs/Day Years Used Date Smoking Tobacco: Never Assessed Education Answer Date Recorded Are you interested in more education? Not on main e 12/22/2022 Are you concerned about learning? Not on file 12/22/2022 No 12/22/2022 No 12/22/2022 Digital Access Answer Date Recorded No 01/22/2023 No 01/22/2023 No 01/22/2023 Reliable internet access at home? Not on file 01/22/2023 Device with a working camera? Not on file Sex and Gender Information Value Date Recorded Sex Assigned at Not on file Legal Sex Male 9:57 PM EDT Gender Identity Not on file Sexual Orientation Not on file Plan of Treatment Health Maintenance Due Date Last Done Comments Adult Td,Tdap Booster 1954 DEPRESSION SCREENING 1966 HEPATITIS C SCREENING 02/08/1972 ZOSTER VACCINES (1 of 2) 02/08/2004 PNEUMOCOCCAL VACCINES (50+ years) (2 of 2 - PPSV23) 07/15/2020 07/15/2019 LIPID PANEL 02/09/2025 02/10/2020, 03/28, 08/14/2018, Additional history exists INFLUENZA VACCINE (#1) 2025 , 05/25/2020, 07/15/2019, Additional history exists COVID-19 VACCINE ( season) 2025 08/11/2021, 11/23/2020, 11/02/2020 RSV VACCINE (1 - 1-dose 75+ series) 2029 COLORECTAL CANCER SCREENING Completed HEPATITIS A VACCINES Aged Out No long er eligible based on patient's age to complete this topic HIB VACCINES Aged Out No longer eligi ble based on patient's age to complete this topic MENINGOCOCCAL VACCINES (ACWY) Aged Out No longer eligible based on patient's age to complete this topic MENINGOCOCCAL VACCINES (B) Aged Out N o longer eligible based on patient's age to complete this topic Medical Devices Not on file Procedures Procedure Name Priority Date/Time Associated Diagnosis Comments LIPID PANEL Routine 02/10/2020 8:51 AM EDT Hyperlipidemia, unspecified hyperlipidemia type Secondary hypertension from Last 3 Months or Most Recently Relevant to Health Maintenance Results * (ABNORMAL) Lipid panel (02/10/2020 8:51 AM EDT) HDL 73 mg/dL [facility] Comment: Interpretation <40 mg/dL: Low HDL cholesterol (major risk factor for CHD) Greater than or equal to 60 mg/dL: High HDL cholesterol ( negative risk factor for CHD) HDL - cholesterol is affected by a number of factors, e.g. smoking, excerise, hormones, sex and age. CHOLESTEROL 235 0 - 240 mg/dL [facility] TRIGLYCERIDES 58 30 - 160 mg/dL [facility] LDL 150(H) 50 - 129 mg/dL [facility] Comment: LDL levels in terms of risk for coronary heart disease: <100 mg/dL: Optimal 100-129 mg/dL: Near or above optimal 130-159 mg/dL: Borderline high 160-189 mg/dL: High >190 mg/dL: Very High CARDIAC RISK RATIO 3.2(L) 3.4 - 5.0 [facility] Blood 02/10/2020 8:51 AM EDT 02/10/2020 8:55 AM EDT us Hoang Tidwell DO LAB BLOOD ORDERABLES Final Resu lt [facility] [address] [place] [address] from Last 3 Months or Most Recently Relevant to Health Maintenance Insurance MEDICARE PART A & B [id number] [place] [address] MEDICARE SUPPLEMENT MEDICARE PART A & B [facility] MEDICARE SUPPLEMENT MEDICARE PART A & B [facility] MEDICARE SUPPLEMENT MEDICARE PART A & B [facility] MEDICARE SUPPLEMENT MEDICARE PART A & B MEDICARE SUPPLEMENT MEDICARE PART A & B [facility] MEDICARE SUPPLEMENT MEDICARE PART A & B [facility] MEDICARE SUPPLEMENT MEDICARE PART A & B [facility] MEDICARE SUPPLEMENT MEDICARE PART A & B [facility] MEDICARE SUPPLEMENT Care Teams Track Sweeper Relationship Specialty Start Date End Date Hoang Tidwell DO PCP - General Internal Medicine 10/15/19 Additional Source Comments The information contained in this document represents components of the legal health record. It is not the complete legal health record.[facility]
--- OUTSIDE RECORDS SUMMARY | 2025-06-09 14:17 | XMS_ITS | Encounter Summary ---
Author Organization [facility] Address [address] [place] [address] Phone Care Team Providers Care Maple Sugar Maker Name Role Phone Zoran Keller MD Primary Care Provider Hoang Tidwell DO Primary Care Provider [phone] Encounter Details Date Type Department Care Team (Latest Contact Info) Description 01/08/2018 Transcribe Orders [facility] [address] [place] [address] Hoang Tidwell DO [address] [place] [address] Hyperlipidemia, unspecified hyperlipidemia type (Primary Dx); Essential [...] on file documented as of this encounter Procedures Procedure Name Priority Date/Time Associated Diagnosis Comments ALANINE AMINOTRANSFERASE (ALT) Routine 01/08/2018 9:17 AM EDT Hyperlipidemia, unspecified hyperlipidemia type Essential hypertension, benign ASPARTATE AMINOTRANSFERASE (AST) Routine 01/08/2018 9:17 AM EDT Hyperlipidemia, unspecified hyperlipidemia type Essential hypertension, benign documented in this encounter Results * (ABNORMAL) Lipid panel (01/08/2018 9:17 AM EDT) HDL 72 mg/dL [facility] Comment: Interpretation: Risk Level Males Decreased >45 mg/dL Average 40-45 mg/dL Increased <40 mg/dL CHOLESTEROL 249(H) 0 - 240 mg/dL [facility] TRIGLYCERIDES 123 30 - 160 mg/dL [facility] LDL 152(H) 50 - 129 mg/dL [facility] Comment: LDL levels in terms of risk for coronary heart disease: <100 mg/dL: Optimal 100-129 mg/dL: Near or above optimal 130-159 mg/dL: Borderline high 160-189 mg/dL: High >190 mg/dL: Very High CARDIAC RISK RATIO 3.5 3.4 - 5.0 [facility] Blood 01/08/2018 9:17 AM EDT 01/08/2018 9:21 AM EDT us Hoang Tidwell DO LAB BLOOD ORDERABLES Final Resu lt [facility] [address] [place] [address] * (ABNORMAL) Basic metabolic panel (01/08/2018 9:17 AM EDT) SODIUM 144 133 - 146 mmol/L [facility] CHLORIDE 105 96 - 108 mmol/L [facility] POTASSIUM 5.7(H) 3.3 - 5.1 mmol/L [facility] CO2 28 21 - 35 mmol/L [facility] BUN 19 6 - 19 mg/dL [facility] CREATININE 1.20 0.5 - 1.5 mg/dL [facility] GLUCOSE 104(H) 70 - 99 mg/dL [facility] CALCIUM 9.2 8.4 - 10.3 mg/dL [facility] EGFR 64 >59 mL/min/1.7 3m2 [facility] Comment:If patient is black, multiply result by 1.159. The eGFR calculation has changed from the MDRD equation to the CKD-EPI equation as of October 30, 2017. ANION GAP 17 10 - 20 mmol/L [facility] Blood 01/08/2018 9:17 AM EDT 01/08/2018 9:21 AM EDT us Hoang L Tidwell DO LAB BLOOD ORDERABLES Final Resu lt Performing Organization Address [facility]/ZIP Co de Phone Number [address] [address] * Alanine aminotransferase (ALT) (01/08/2018 9:17 AM EDT) ALT 11 0 - 40 U/L [facility] Blood 01/08/2018 9:17 AM EDT 01/08/2018 9:20 AM EDT us Hoang Tidwell DO LAB BLOOD ORDERABLES Final Resu lt Performing Organization Address [facility] Co de Phone Number [address] [address] * Aspartate aminotransferase (AST) (01/08/2018 9:17 AM EDT) AST 15 0 - 37 U/L [facility] Blood 01/08/2018 9:17 AM EDT 01/08/2018 9:20 AM EDT Hoang Tidwell DO LAB BLOOD ORDERABLES Final Resu lt Performing Organization Address [facility] de Phone Number [address] [address] documented in this encounter Visit Diagnoses Diagnosis Hyperlipidemia, unspecified hyperlipidemia type- Primary Essential hypertension, benign documented in this encounter Care Teams Maple Sugar Maker Relationship Specialty Start Date End Date Zoran Keller MD [address] [place] [address] [place] [address] PCP - General Internal Medicine 01/08/18 10/14/19 Hoang Tidwell DO [address] [place] [address] [place] [address] PCP - General Internal Medicine 10/15/19 documented as of this encounter Additional Source Comments The information contained in this document represents components of the legal health record. It is not the complete legal health record.[facility]
--- OUTSIDE RECORDS SUMMARY | 2025-06-09 14:17 | XMS_ITS | Encounter Summary ---
Author Organization [facility] Address [address] [place] [address] [place] [address] Phone Care Team Providers Care Data Warehouse Consultant Name Role Phone Zoran Keller MD Primary Care Provider [phone] Hoang Tidwell DO Primary Care Provider [phone] Encounter Details Date Type Department Care Team (Late st Contact Info) Description 01/08/2018 Transcribe Orders [address] [place] [address] Zoran Keller MD [address] [place] [address] [place] [address] Social History Tobacco Use Types Packs/Day Years [...] Diagnoses Not on filedocumented in this encounter Care Teams Data Warehouse Consultant Relationship Specialty Start Date End Date Zoran Keller MD [address] [place] [address] [place] [address] PCP - General Internal Medicine 01/08/18 10/14/19 Hoang Tidwell DO [address] [place] [address] [place] [address] PCP - General Internal Medicine 10/15/19 documented as of this encounter Additional Source Comments The information contained in this document represents components of the legal health record. It is not the complete legal health record.[facility]
== END 2025-06-09 12:29 | disposition home or self-care (01) ==
PROVIDERS: Visit Provider Physician Assistant
DX: S60.562A Insect bite (nonvenomous) of left hand, initial encounter (principal); W57.XXXA Bitten or stung by nonvenomous insect and other nonvenomous arthropods, initial encounter

== ENCOUNTER → 2025-06-09 11:41 | Outpatient (BNVA) | payer MEDICARE, SELFPAY | PROVIDERS: Visit Provider Physician Assistant | DX: S60.562A Insect bite (nonvenomous) of left hand, initial encounter (principal); W57.XXXA Bitten or stung by nonvenomous insect and other nonvenomous arthropods, initial encounter; Y93.9 Activity, unspecified; Y92.9 Unspecified place or not applicable; Y99.9 Unspecified external cause status | CPT/HCPCS: 99212 ==